=== PATIENT | male | born 1945 | race African-American/Black ===

== ENCOUNTER 2016-11-13 08:07 | Day surgery (SDC) | payer OTHER ==
[2016-11-13 08:56] VITALS: BMI 29.1
[2016-11-13] MEDS ORDERED: PROPOFOL 20 ML ONE ×2 (09:16)
[2016-11-13 10:15] VITALS: TEMP 97.8
[2016-11-13 11:47] VITALS: BP 118/64; PULSE 57
--- NOTE | 2016-11-14 12:44 | PATH ---
Surgical Pathology Report Patient Name: RADHA LOPEZ [facility]. Rec. #: [id number] /Age/Gender: 1945 (Age: 70) / M Account: [id number] Location: [facility]-ENDOSCOPY Taken: 11/13/2016 Received: 11/13/2016 Reported: 11/14/2016 Physicians: Henrique Oh M.D. Specimen(s) Received A: BIOPSY DESCENDING COLON POLYP B: BIOPSY TRANSVERSE COLON POLYP C: BIPSY ANASTOMOSIS WITH POLYP Clinical History Screening colonoscopy, status post colon resection Redundant colon, right colon anastomosis, colon polyp, anastomotic polyp Final Diagnosis A. COLON, DESCENDING, BIOPSY: HYPERPLASTIC POLYP. B. COLON, TRANSVERSE, HOT SNARE POLYPECTOMY: TUBULAR ADENOMA. C. COLON, ANASTOMOSIS, BIOPSY: SMALL INTESTINAL MUCOSA WITH FOLLICULAR HYPERPLASIA OF MUCOSA ASSOCIATED LYMPHOID TISSUE, AND COLONIC MUCOSA WITH NO PATHOLOGIC CHANGES. Comment: Recommend correlation with clinical findings and follow up as clinically indicated. Electronically Signed Asa Perdomo M.D. Gross Description A. Received in formalin, labeled "biopsy descending colon polyp" are 2 goldman, irregular portions of soft tissue measuring 0.2 and 0.5 cm. in greatest dimension. The specimens are submitted in toto in one cassette. B. Received in formalin, labeled "transverse colon polyp" are 3 goldman, irregular portions of soft tissue averaging 0.3 cm. in greatest dimension. The specimens are submitted in toto in one cassette. C. Received in formalin, labeled "biopsy anastomosis polyp" are 6 goldman, irregular portions of soft tissue ranging from 0.1-0.4 cm. in greatest dimension. The specimens are submitted in toto in one cassette. /11/13/2016 saudi11/13/2016
== END 2016-11-13 11:10 | disposition home or self-care (01) ==
LOC: JASU-ENDO 08:07
PROVIDERS: ATTEND Internal Medicine Gastroenterology
PROC: 0DBM8ZX Excision of Descending Colon, Via Natural or Artificial Opening Endoscopic, Diagnostic (ICD-10-PCS; 2016-11-13)
PROC: 0DBF8ZX Excision of Right Large Intestine, Via Natural or Artificial Opening Endoscopic, Diagnostic (ICD-10-PCS; 2016-11-13)
PROC: 0DBL8ZX Excision of Transverse Colon, Via Natural or Artificial Opening Endoscopic, Diagnostic (ICD-10-PCS; principal; 2016-11-13 09:00)
DX: Z12.11 Encounter for screening for malignant neoplasm of colon (principal); Z86.010 Personal history of colon polyps; D12.4 Benign neoplasm of descending colon; D12.3 Benign neoplasm of transverse colon; K63.5 Polyp of colon; K64.8 Other hemorrhoids; K63.89 Other specified diseases of intestine; K66.0 Peritoneal adhesions (postprocedural) (postinfection); Z98.0 Intestinal bypass and anastomosis status; Z85.038 Personal history of other malignant neoplasm of large intestine
CPT/HCPCS: 88305-TC

== ENCOUNTER 2024-04-30 21:43 | Inpatient (IN) | payer OTHER ==
[2024-05-01] MEDS ORDERED: HEPARIN NA (PORCINE) 5,000 UNITS/ML 1ML VIAL IVPUSH PRN ×2 (00:08)
[2024-05-01] MEDS ORDERED: HEPARIN NA (PORCINE) 5,000 UNITS/ML 1ML VIAL ONE (01:06)
[2024-05-01 01:11] LABS: ABSOLUTE IMMATURE GRANULOCYTES 0.02 x10^3/uL (0.0-0.031); BASOPHILS # 0.05 x10^3/uL (0.01-0.08); EOSINOPHIL % 3.8 % (0.8-7.0); EOSINOPHILS # 0.36 x10^3/uL (0.04-0.54); HEMATOCRIT 43.8 % (40.1-51.0); HEMOGLOBIN 14.6 g/dL (13.7-17.5); MCHC 33.3 g/dl (32.3-36.5); MEAN CELL VOLUME 87.1 fl (79.0-92.2); MEAN PLT VOLUME 10.2 fl (9.4-12.4); MONOCYTE # 1.28 x10^3/uL (0.30-0.82); MONOCYTE % 13.7 % (5.3-12.2); PLATELET COUNT # 135 x10^3/uL (163-337); RDW 13.9 % (12.2-16.6)
[2024-05-01 01:18] LABS: INR 1.14 (0.83-1.09); PROTHROMBIN TIME (PATIENT) 12.4 SEC (9.7-13.0)
[2024-05-01] MEDS: HEPARIN INFUSION - 25,000 UNITS/500 ML INFUS.BAG IVPB SCH (01:18)
[2024-05-01] MEDS: HEPARIN NA (PORCINE) 5,000 UNITS/ML 1ML VIAL IVPUSH ONE (01:18)
[2024-05-01 01:21] LABS: ACTIVATED PTT 31.4 SECONDS (25.2-36.5)
[2024-05-01 01:31] LABS: POTASSIUM 4.2 mmol/L (3.5-5.1)
[2024-05-01 01:33] LABS: ALBUMIN 3.5 g/dl (3.4-5.0); BLOOD UREA NITROGEN 23.2 mg/dL (7-18); CALCIUM 8.7 mg/dL (8.5-10.1)
[2024-05-01 01:36] LABS: CREATININE 1.3 mg/dL (0.55-1.3)
[2024-05-01 01:38] LABS: BILIRUBIN,TOTAL 0.6 mg/dL (0.2-1); TOT PROT 7.2 g/dl (6.4-8.2)
[2024-05-01 01:41] LABS: N-TERMINAL BNP 116.6 pg/ml (5-450)
[2024-05-01 05:51] VITALS: BMI 30.9
[2024-05-01] MEDS: amLODIPine BESYLATE 10 MG TABLET (FP) PO SCH (09:23)
[2024-05-01] MEDS: LOSARTAN POTASSIUM 50 MG TABLET PO SCH (09:23)
[2024-05-01 09:53] LABS: ABSOLUTE IMMATURE GRANULOCYTES 0.03 x10^3/uL (0.0-0.031); BASOPHILS # 0.05 x10^3/uL (0.01-0.08); EOSINOPHIL % 4.7 % (0.8-7.0); EOSINOPHILS # 0.44 x10^3/uL (0.04-0.54); HEMATOCRIT 43.4 % (40.1-51.0); HEMOGLOBIN 14.4 g/dL (13.7-17.5); MCHC 33.2 g/dl (32.3-36.5); MEAN PLT VOLUME 10.9 fl (9.4-12.4); MONOCYTE # 0.99 x10^3/uL (0.30-0.82); MONOCYTE % 10.5 % (5.3-12.2); PLATELET COUNT # 138 x10^3/uL (163-337)
[2024-05-01 10:15] LABS: POTASSIUM 3.8 mmol/L (3.5-5.1)
[2024-05-01 10:20] LABS: ALBUMIN 3.5 g/dl (3.4-5.0); BLOOD UREA NITROGEN 20.8 mg/dL (7-18); CALCIUM 8.7 mg/dL (8.5-10.1); MAGNESIUM 1.9 mg/dL (1.8-2.4)
[2024-05-01 10:23] LABS: CREATININE 1.2 mg/dL (0.55-1.3)
[2024-05-01 10:24] LABS: PHOSPHOROUS 2.5 mg/dL (2.5-4.9)
[2024-05-01 10:25] LABS: BILIRUBIN,TOTAL 0.9 mg/dL (0.2-1); TOT PROT 7.1 g/dl (6.4-8.2)
[2024-05-01] MEDS: APIXABAN 5 MG TABLET PO SCH (10:58)
[2024-05-01] MEDS: TIMOLOL 0.5% OPHTHALMIC SOL 5 ML BOTTLE OU SCH (10:59)
[2024-05-01 11:07] VITALS: RESP 18
[2024-05-01 14:20] VITALS: BP 121/61; PULSE 80; TEMP 98.1
[2024-05-01] MEDS ORDERED: ATORVASTATIN CA 20 MG TABLET (FP) PO SCH (22:00)
[2024-05-01] MEDS ORDERED: LATANOPROST 0.005% OPHTH SOLN 2.5ML BOTTLE OU SCH (22:00)
== END 2024-05-01 16:53 | disposition home or self-care (01) | DRG 301 ==
LOC: JER 21:43 → JERBED 05-01 01:56 → J6S 05-01 05:01
PROVIDERS: ADMIT Internal Medicine; ATTEND Student in an Organized Health Care Education/Training Program
DX: I82.413 Acute embolism and thrombosis of femoral vein, bilateral (principal); I82.433 Acute embolism and thrombosis of popliteal vein, bilateral; I10 Essential (primary) hypertension; E78.5 Hyperlipidemia, unspecified; H40.9 Unspecified glaucoma
CPT/HCPCS: 36415; 80053; 81240; 81241; 83735; 83880; 84100; 85025; 85300; 85610; 85730; 86850; 86900; 86901; 93005; 93010; 93970-TC; 99285-25; J1644